=== PATIENT | male | born 1995 | race Caucasian/White ===

== ENCOUNTER 2017-04-30 13:49 | Emergency (ER) | payer BC, OTHER ==
[2017-04-30 14:02] VITALS: O2SAT 99
--- NOTE | 2017-04-30 14:41 | ERPHSYRPT ---
- History of Present Illness Time Seen by Provider: 04/30/17 14:34 Source: patient Exam Limitations: no limitations Patient Subjective Stated Complaint: "I stepped on a nail in my garage." Triage Nursing Assessment: pt alert and oriented X 3, skin pwd pt ambulates with a slight. limp. pt has laceration to medial left foot Physician History: The patient is a 21-year-old male with a friend complaining that he stepped on something sharp while in his bare feet while he was cleaning out a barn. The sharp object caused a laceration to the inside of his left foot. His tetanus vaccination he states is up-to-date. He denies numbness or tingling. Past medical history is unremarkable. Timing/Duration: today Quality: painful, other (lac) Severity: mild Location: feet (left) Possible Causes: other (sharp object) Allergies/Adverse Reactions: Sulfa (Sulfonamide Antibiotics) [Sulfa(Sulfonamide Antibiotics)] Allergy ( Intermediate, Verified 04/30/17 14:03) Hives Hx Tetanus, Diphtheria Vaccination/Date Given: Yes Hx Influenza Vaccination/Date Given: No Hx Pneumococcal Vaccination/Date Given: No Immunizations Up to Date: Yes - Review of Systems Constitutional: No Fever, No Chills Eyes: No Symptoms Ears, Nose, & Throat: No Symptoms Respiratory: No Cough, No Dyspnea Cardiac: No Chest Pain, No Edema, No Syncope Abdominal/Gastrointestinal: No Abdominal Pain, No Nausea, No Vomiting, No Diarrhea Genitourinary Symptoms: No Dysuria Musculoskeletal: No Back Pain, No Neck Pain Skin: Other (lac) Neurological: No Dizziness, No Focal Weakness, No Sensory Changes Psychological: No Symptoms Endocrine: No Symptoms Hematologic/Lymphatic: No Symptoms Immunological/Allergic: No Symptoms All Other Systems: Reviewed and Negative - Past Medical History Pertinent Past Medical History: Yes Neurological History: No Pertinent History ENT History: No Pertinent History Cardiac History: No Pertinent History Respiratory History: No Pertinent History Endocrine Medical History: No Pertinent History Musculoskeletal History: No Pertinent History GI Medical History: No Pertinent History History: No Pertinent History Psycho-Social History: No Pertinent History Male Reproductive Disorders: No Pertinent History - Past Surgical History Past Surgical History: Yes (orbital left eye) Neuro Surgical History: No Pertinent History Cardiac: No Pertinent History Respiratory: No Pertinent History Gastrointestinal: No Pertinent History Genitourinary: No Pertinent History Musculoskeletal: No Pertinent History Male Surgical History: No Pertinent History - Social History Smoking Status: Never smoker Exposure to second hand smoke: Yes Alcohol Use: None Drug Use: marijuana Patient Lives Alone: Yes Significant Family History: no pertinent family hx - Nursing Vital Signs Nursing Vital Signs: Initial Vital Signs Temperature 98.4 F Temperature Source Oral Pulse Rate 93 Respiratory Rate 18 Blood Pressure [Right Arm] 164/76 Pain Intensity 3 - Physical Exam General Appearance: no apparent distress, alert Eye Exam: PERRL/EOMI, eyes nml inspection Ears, Nose, Throat Exam: normal ENT inspection, pharynx normal, moist mucous membranes Neck Exam: normal inspection, non-tender, supple, full range of motion Respiratory Exam: normal breath sounds, lungs clear, No respiratory distress Cardiovascular Exam: regular rate/rhythm, normal heart sounds Gastrointestinal/Abdomen Exam: soft, mass, No tenderness Rectal Exam: not done Back Exam: normal inspection, normal range of motion, No CVA tenderness, No vertebral tenderness Extremity Exam: normal inspection, normal range of motion Neurologic Exam: alert, oriented x 3, cooperative, normal mood/affect, sensation nml, No motor deficits Skin Exam: laceration (Examination of the left foot reveals an approximate 3 cm linear laceration to the medial aspect of the midfoot.) SpO2 Interpretation: normal SpO2: 99 Oxygen Delivery: Room Air Procedures - Laceration/Wound Repair Left Medial Foot Wound Location: Left, foot Wound Length (cm): 3 Wound's Depth, Shape: superficial, linear Wound Explored: clean Hibiclens Prep: Yes Anesthesia: 1% Lidocaine Volume Anesthetic (ccs): 10 Wound Repaired With: sutures Suture Size/Type: 4-0, nylon Number of Sutures: 6 Layer Closure?: No Ordered Tests: Active Orders 24 hr Category Date Time Status Wound Care STAT Care 04/30/17 14:12 Active Wound Care STAT Care 04/30/17 14:44 Active Medication Summary Discontinued Medications Generic Name Dose Route Start Last Admin Trade Name Freyolanda PRN Reason Stop Dose Admin Lidocaine HCl 10 ml 04/30/17 14:44 04/30/17 14:52 Xylocaine 1% Hcl 20 Ml Mdv IJ 04/30/17 14:45 10 ml STAT ONE Administration Lidocaine HCl Confirm 04/30/17 14:47 Xylocaine 1% Hcl 20 Ml Mdv Administered 04/30/17 14:48 Dose 10 ml .ROUTE .STK-MED ONE - Progress Progress: improved Counseled pt/family regarding: diagnosis, need for follow-up - Departure Time of Disposition: 15:21 Departure Disposition: Home Clinical Impression: Laceration of left foot Condition: Stable Critical Care Time: No Additional Instructions: You had a laceration to the mid part of your left foot repaired with 6 sutures. Have the sutures removed in 12-14 days. You can take a brief shower without affecting the sutures. Take Augmentin 875 twice a day for 10 days. For pain control, if needed, take Tylenol or ibuprofen. Prescriptions: Amoxicillin/Potassium Clav [Augmentin 875-125 Tablet] 875 mg PO BID #20 tablet
[2017-04-30] MEDS ORDERED: XYLOCAINE 1% HCL 20 ML MDV IJ ONE (14:44)
[2017-04-30] MEDS ORDERED: XYLOCAINE 1% HCL 20 ML MDV ONE (14:47)
[2017-04-30] MEDS ORDERED: BACIGUENT PACKET TP ONE (15:27)
[2017-04-30] MEDS ORDERED: BACIGUENT PACKET ONE (15:28)
[2017-04-30 15:39] VITALS: BP 138/76; PULSE 82
== END 2017-04-30 15:44 | disposition home or self-care (01) ==
LOC: ED 13:49
PROC: 0HQNXZZ Repair Left Foot Skin, External Approach (ICD-10-PCS; principal; 2017-04-30)
DX: S91.322A Laceration with foreign body, left foot, initial encounter (principal); W45.0XXA Nail entering through skin, initial encounter; Y93.H9 Activity, other involving exterior property and land maintenance, building and construction
CPT/HCPCS: 12002; 99283; A9270-GY